=== PATIENT | male | born 1945 | race Caucasian/White ===

== ENCOUNTER 2021-01-14 11:12 | Day surgery (SDC) | payer OTHER ==
[~2021-01-14] VITALS: Ht 177.8 cm; Wt 109.0 kg
[~2021-01-14 11:12] MED LIST: APIX5TAB PO; ATOR20TA58 PO; BENZOCAINE ONE 20% MUCOSAL SPRAY. MM; GLUC-11 PO; HYDROmorphone 2 MG/ML VIAL IVP PRN; IV RINGERS,LACTATED 1000ML 1,000 ML IV SCH; LEVO200T5 PO; LIDOCAINE 2% TOPICAL JELLY 30GM TUBE. TP ONE; LIDOCAINE 2% VISCOUS 15 ML SOLUTION. SWSW ONE; LISI20TA18 PO; METO25TA4 PO; MORPHINE SULFATE 2 MG/ML VIAL. IVP PRN; PROCHLORPERAZINE 10 MG/2 ML VIAL. IVP PRN; UBID10CA5 PO; fentaNYL PF VIAL 100 MCG/2 ML VIAL IVP PRN
[2021-01-14 11:50] VITALS: BP 131/88
--- NOTE | 2021-01-14 12:04 | EKG ---
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
[2021-01-14 12:25] LABS: CALCIUM 9.3 mg/dL (8.5-10.1); CREATININE 1.2 mg/dL (0.7-1.3); GFR 58.9; HEMATOCRIT 39.9 % (39.0-53.0); HEMOGLOBIN 13.4 g/dL (13.0-17.5); POTASSIUM 4.2 mmol/L (3.5-5.1); RED BLOOD COUNT 4.6 x10^6/uL (4.30-5.70); RED CELL DISTRIBUTION WIDTH 14.8 % (11.5-14.5); WHITE BLOOD COUNT 10.1 x10^3/uL (4.0-11.0)
[2021-01-14 12:32] LABS: PROTHROMBIN TIME PATIENT 16.1 SEC (11.7-14.0)
[2021-01-14] MEDS ORDERED: PROPOFOL 10 MG/ML (20ML) VIAL. IV ONE (13:02)
[2021-01-14] MEDS ORDERED: LIDOCAINE 2% PF 5 ML VIAL. ONE (13:02)
[2021-01-14] MEDS ORDERED: LIDOCAINE 2% VISCOUS 15 ML SOLUTION. ONE (13:06)
[2021-01-14] MEDS ORDERED: BENZOCAINE ONE 20% MUCOSAL SPRAY. (13:06)
[2021-01-14] MEDS ORDERED: LIDOCAINE 2% TOPICAL JELLY 5GM TUBE. TP ONE (13:06)
--- NOTE | 2021-01-14 13:39 | EKG ---
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
[2021-01-14 13:40] VITALS: BP 119/64
--- NOTE | 2021-01-14 14:28 | PDOC1 ---
History and Physical Visit Information Date of Admission: 01/14/2021 History of Present Illness History of Present Illness Tristan is a pleasant 75-year-old man with new onset diagnosis of atrial fibrillation. He was seen in the office and risks and benefits were discussed regarding cardioversion and return of sinus rhythm. He presents today for planned BRICE/cardioversion. He has been initiated on anticoagulation therapy. He denies any current chest pain or dyspnea. Cardiac Risk Factors Cardiac Risk Factors: Hypertension, Smoking, Hyperlipidemia, Family History Past Medical History Cardiovascular: CAD, CHF, HTN Current Medications Current Medications Current Medications Benzocaine (Hurricaine One) 2 spray 1X ONCE MM ; Start 01/14/21 at 08:45; Stop 01/14/21 at 08:46; Status DC Fentanyl Citrate (Fentanyl 2ml Vial) 25 mcg PRN Q5MIN PRN IVP MILD PAIN 1-3; Start 01/14/21 at 06:00; Stop 01/14/21 at 14:21; Status DC Fentanyl Citrate (Fentanyl 2ml Vial) 50 mcg PRN Q5MIN PRN IVP MODERATE PAIN 4- 6; Start 01/14/21 at 06:00; Stop 01/14/21 at 14:21; Status DC Hydromorphone HCl (Dilaudid) 0.5 mg PRN Q10MIN PRN IVP SEVERE PAIN 7-10, 2nd CHOICE; Start 01/14/21 at 06:00; Stop 01/14/21 at 14:21; Status DC Lidocaine HCl (Viscous Lidocaine) 15 ml 1X ONCE SWSW ; Start 01/14/21 at 08:45; Stop 01/14/21 at 08:46; Status DC Lidocaine HCl (Xylocaine 2% Topical 30gm Tube) 1 cem 1X ONCE TP ; Start 01/14/21 at 08:45; Stop 01/14/21 at 08:46; Status DC Morphine Sulfate (Morphine Sulfate) 1 mg PRN Q10MIN PRN IVP SEVERE PAIN 7-10; Start 01/14/21 at 06:00; Stop 01/14/21 at 14:21; Status DC Prochlorperazine Edisylate (Compazine) 5 mg PACU PRN PRN IVP NAUSEA, MRX1; Start 01/14/21 at 06:00; Stop 01/14/21 at 14:21; Status DC Ringer's Solution 1,000 ml @ 30 mls/hr Q24H IV Last administered on 01/14/21at 12:03; Start 01/14/21 at 06:00; Stop 01/14/21 at 14:21; Status DC Allergies Allergies Allergies Coded Allergies Type Severity Reaction Last Updated Verified rosuvastatin Allergy Intermediate Hives 01/14/21 Yes Family History Comments Noncontributory ROS Review of System Negative for 10-14 systems reviewed unless otherwise mentioned above in HPI Physical Exam Comments The patient appeared well nourished and normally developed. Head exam is unremarkable. No scleral icterus or corneal arcus noted. Neck is without jugular venous distension, thyromegaly, or carotid bruits. Carotid upstrokes are brisk bilaterally. Lungs are clear to auscultation and percussion. Cardiac exam reveals the PMI to be normally sized and situated. Rhythm is irregular. First and second heart sounds normal. No murmurs, rubs or gallops. Abdominal exam reveals normal bowel sounds, no masses, no organomegaly and no aortic enlargement. Extremities are nonedematous and both femoral and pedal pulses are normal. Msk: No traumua Neuro: No focal deficits Vitals VITALS Vital Signs Date Time Temp Pulse Resp B/P (MAP) Pulse Ox O2 Delivery O2 Flow Rate FiO2 01/14/21 13:40 97.0 72 16 119/64 92 Room Air 97.0 01/14/21 13:24 5 Labs Labs Laboratory Tests Test 01/14/21 11:45 White Blood Count 10.1 x10^3/uL (4.0-11.0) Red Blood Count 4.60 x10^6/uL (4.30-5.70) Hemoglobin 13.4 g/dL (13.0-17.5) Hematocrit 39.9 % (39.0-53.0) Mean Corpuscular Volume 87 fL (79-100) Mean Corpuscular Hemoglobin 29 pg (25-35) Mean Corpuscular Hemoglobin Concent 34 g/dL (31-37) Red Cell Distribution Width 14.8 % (11.5-14.5) Platelet Count 229 x10^3/uL (140-400) Prothrombin Time 16.1 SEC (11.7-14.0) Prothromb Time International Ratio 1.3 (0.8-1.1) Sodium Level 143 mmol/L (136-145) Potassium Level 4.2 mmol/L (3.5-5.1) Chloride Level 104 mmol/L (98-107) Carbon Dioxide Level 28 mmol/L (21-32) Anion Gap 11 (6-14) Blood Urea Nitrogen 17 mg/dL (8-26) Creatinine 1.2 mg/dL (0.7-1.3) Estimated GFR (Cockcroft-Gault) 58.9 Glucose Level 98 mg/dL (70-99) Calcium Level 9.3 mg/dL (8.5-10.1) Laboratory Tests Test 01/14/21 11:45 White Blood Count 10.1 x10^3/uL (4.0-11.0) Red Blood Count 4.60 x10^6/uL (4.30-5.70) Hemoglobin 13.4 g/dL (13.0-17.5) Hematocrit 39.9 % (39.0-53.0) Mean Corpuscular Volume 87 fL (79-100) Mean Corpuscular Hemoglobin 29 pg (25-35) Mean Corpuscular Hemoglobin Concent 34 g/dL (31-37) Red Cell Distribution Width 14.8 % (11.5-14.5) Platelet Count 229 x10^3/uL (140-400) Prothrombin Time 16.1 SEC (11.7-14.0) Prothromb Time International Ratio 1.3 (0.8-1.1) Sodium Level 143 mmol/L (136-145) Potassium Level 4.2 mmol/L (3.5-5.1) Chloride Level 104 mmol/L (98-107) Carbon Dioxide Level 28 mmol/L (21-32) Anion Gap 11 (6-14) Blood Urea Nitrogen 17 mg/dL (8-26) Creatinine 1.2 mg/dL (0.7-1.3) Estimated GFR (Cockcroft-Gault) 58.9 Glucose Level 98 mg/dL (70-99) Calcium Level 9.3 mg/dL (8.5-10.1) ECG Comments Atrial fibrillation initially and repeat EKG revealed sinus rhythm after cardioversion VTE Prophylaxis Ordered VTE Prophylaxis Devices: No VTE Pharmacological Prophylaxi: No Assessment/Plan Assessment/Plan 1. Atrial fibrillation, new onset. Plan for BRICE/cardioversion. Risks and benefits discussed with patient and he is agreeable to proceed Justicifation of Admission Dx: Justifications for Admission: Justification of Admission Dx: N/A DELPHINE MITCHELL MD Jan 14, 2021 14:28
--- NOTE | 2021-01-14 14:38 | CARD ---
MR#: [id number] Date of Study: 01/14/2021 Ordering Physician: DELPHINE MITCHELL, Referring Physician: DELPHINE MITCHELL Tech: Wilmer Chiang [facility] APPROVED REPORT EXAM: Transesophageal echocardiogram with color flow Doppler. INDICATION Atrial Fibrillation Echo Enhancing Agent Indication: Rule Out Septal Defect Agent/Amount Used: Agitated Saline mL Reason For Test : Rule out cardiac source of emboli. PROCEDURE After obtaining informed consent, patient underwent transesophageal echo in the PACU. Type of Sedation : Conscious Sedation Sedation was administered by Anesthesia dept. Sedation was achieved with Propofol 150 mg intravenously. Transesophageal probe was inserted and advanced into esophagus by Chuckie Mitchell MD. Echo enhancement indication: R/O Septal defect. Echo enhancement agent administered: Agitated Saline The BRICE was performed without complications. Synchronized Cardioversion attempted: Successful Synchronized Cardioversion acheived with 200 Joules after 1 attempt(s). Rhythm following Synchronized Cardioversion: Normal Sinus Rhythm Throughout the procedure, the blood pressure, pulse oximetry, cardiac rhythm, and rate were monitored . The patient tolerated the procedure without adverse effects. Recovery from conscious sedation was une ventful and vital signs were stable. LEFT VENTRICLE The Left Ventricle is mildly dilated. There is mild concentric left ventricular hypertrophy. The syst olic function is moderately impaired. EF 35-40% There is moderate global hypokinesis. No left ventric le thrombus noted on this study. There is no ventricular septal defect visualized. There is no left v entricular aneurysm. There is no mass noted in the left ventricle. RIGHT VENTRICLE The right ventricle is mildly dilated. There is normal right ventricular wall thickness. The right ve ntricular systolic function is normal. ATRIA The left atrium is mildly dilated. The right atrium is mildly dilated. There is a small atrial level defect consistent with a PFO with right to left shunting documented on agitated saline contrast study and color doppler. There is no thrombus noted in the left atrial appendage. AORTIC VALVE The aortic valve is normal in structure and function. Doppler and Color Flow revealed no significant aortic regurgitation. There is no significant aortic valvular stenosis. There is no aortic valvular v egetation. MITRAL VALVE The mitral valve is normal in structure and function. There is no evidence of mitral valve prolapse. There is no mitral valve stenosis. Doppler and Color Flow revealed trivial to mild regurgitation. TRICUSPID VALVE The tricuspid valve is normal in structure and function. Doppler and Color Flow revealed mild to mode rate tricuspid regurgitation. RVSP 40 mm Hg There is no tricuspid valve prolapse or vegetation. There is no tricuspid valve stenosis. PULMONIC VALVE The pulmonary valve is normal in structure and function. Doppler and Color Flow revealed no pulmonic valvular regurgitation. There is no pulmonic valvular stenosis. GREAT VESSELS The aortic root is normal in size. The ascending aorta is normal in size. The IVC is normal in size a nd collapses >50% with inspiration. PERICARDIAL EFFUSION There is no evidence of significant pericardial effusion. There is no pleural effusion. <Conclusion> The systolic function is moderately impaired. EF 35-40% There is moderate global hypokinesis. Doppler and Color Flow revealed mild to moderate tricuspid regurgitation. RVSP 40 mm Hg There is a small atrial level defect consistent with a PFO with right to left shunting documented on agitated saline contrast study and color doppler. Signed by : Delphine Mitchell, Electronically Approved : 01/14/2021 14:38:18
== END 2021-01-14 14:10 | disposition home or self-care (01) ==
LOC: SURG 11:12
PROVIDERS: ATTEND Internal Medicine Cardiovascular Disease
DX: I48.91 Unspecified atrial fibrillation (principal); I07.1 Rheumatic tricuspid insufficiency; R94.31 Abnormal electrocardiogram [ECG] [EKG]; I25.10 Atherosclerotic heart disease of native coronary artery without angina pectoris; I10 Essential (primary) hypertension; E03.9 Hypothyroidism, unspecified; Z87.891 Personal history of nicotine dependence; Z79.899 Other long term (current) drug therapy; Z88.8 Allergy status to other drugs, medicaments and biological substances; Z98.890 Other specified postprocedural states
CPT/HCPCS: 36415; 80048; 85027; 85610; 92960; 93005; 93312; J2704